=== PATIENT | male | born 1960 | race Caucasian/White ===

== ENCOUNTER 2018-09-14 09:24 | Inpatient (IN) ==
[2018-09-14] MEDS ORDERED: ASPIRIN PO ONE (09:29)
[2018-09-14] MEDS ORDERED: PROTONIX IV ONE (09:39)
[2018-09-14] MEDS ORDERED: G.I. COCKTAIL PO ONE (09:39)
[2018-09-14] MEDS ORDERED: SODIUM CHLORIDE 0.9% INJ ONE (09:39)
[2018-09-14 09:51] LABS: BASO# 0.05 X1000 (0.0-0.2); BASO% 0.7 % (0.0-0.8); EOS# 0.25 X1000 (0.0-0.7); EOS% 3.5 % (0.0-10.0); HEMATOCRIT 44.8 % (42.0-52.0); HEMOGLOBIN 15.5 g/dL (14.0-18.0); IMM GRAN# 0.02 X1000 (0.0-0.04); IMM GRAN% 0.3 % (0.0-0.5); LYMPH# 1.95 X1000 (1.2-3.4); LYMPH% 27.2 % (20.5-51.1); MCH 31.3 PG (27-31); MCHC 34.6 g/dL (33-37); MCV 90.5 FL (81-99); MONO# 0.67 X1000 (0.11-0.59); MONO% 9.3 % (1.7-9.3); MPV 9.3 FL (7.4-10.4); NEUT# 4.24 X1000 (1.4-6.5); PLT 253 X1000 (130-400); RBC 4.95 XMIL (4.7-6.1); RDW 12.9 % (11.5-14.5); WBC 7.18 X1000 (4.8-10.8)
--- NOTE | 2018-09-14 09:57 | Diag Imaging Result Doc PS360 ---
CHEST-2 VIEWS - 09/14/2018 INDICATION: chest pain copd COMPARISON: 03/14/2018 FINDINGS: Stable sternotomy wires. The lungs are clear. Heart size is normal. No pneumothorax or pleural effusion. IMPRESSION: Negative exam. Electronically signed by Anibal Velázquez 09/14/2018 9:54 AM
[2018-09-14 10:07] LABS: AGAP 9; BUN 7 mg/dL (8-22); CHLORIDE 99 mmol/L (98-107); COSMO 273; CREATININE 0.9 mg/dL (0.7-1.2); ESTIMATED GFR > 60; GLUCOSE 152 mg/dL (70-104); POTASSIUM 4.2 mmol/L (3.5-5.1); SODIUM 136 mmol/L (136-145); TCO2 28 mmol/L (25-35)
[2018-09-14 10:08] LABS: ALBUMIN 4.4 g/dL (3.5-5.0); ALKALINE PHOSPHATASE 51 U/L (32-122); CALCIUM 8.8 mg/dL (8.8-10.2); CK PROFILE 47 U/L (24-204); GOT 13 U/L (10-34); GPT 13 U/L (10-44); TOTAL PROTEIN 6.6 g/dL (6.3-8.3)
--- NOTE | 2018-09-14 10:09 | PROVIDER DOCUMENTATION ---
This chart was entered by Nataly Bah Scribe, acting as scribe for Stacey Santos CRNP. HPI-General Adult - General Chief Complaint: Chest Pain Stated Complaint: SOB / CHEST TIGHT Time Seen by Provider: 09/14/18 09:31 Source: patient Allergies/Adverse Reactions: Patient Allergies Allergy/AdvReac Type Severity Reaction Status Date / Time codeine Allergy NAUSEA/VOMI Verified 09/14/18 09:59 TING Penicillins Allergy ANAPHYLAXIS Verified 06/25/17 12:36 Home Medications: Home Medication List Medication Instructions Recorded Confirmed Last Taken Type ATORVAstatin [Lipitor] 40 mg PO QHS 06/25/17 06/25/17 1 Week Ago History ~06/18/17 Apixaban [Eliquis] 5 mg PO BID 06/25/17 06/25/17 1 Week Ago History ~06/18/17 Apixaban [Eliquis] 5 mg PO BID #60 tab 06/25/17 Unknown Rx Cholecalciferol (Vitamin D3) 5,000 unit PO QAM 06/25/17 06/25/17 1 Week Ago History [Dialyvite Vitamin D] ~06/18/17 Famotidine 20 mg PO DAILY #30 tab 06/25/17 Unknown Rx Famotidine 20 mg PO QAM 06/25/17 06/25/17 1 Week Ago History ~06/18/17 Flecainide Acetate 50 mg PO DAILY #30 tab 06/25/17 Unknown Rx Flecainide Acetate 50 mg PO QAM 06/25/17 06/25/17 1 Week Ago History ~06/18/17 Fluticasone/Salmet 250/50 INH 1 puff INH RTBID 06/25/17 06/25/17 1 Week Ago History [Advair 250/50 Diskus] ~06/18/17 Folic Acid 1 mg PO DAILY 06/25/17 06/25/17 1 Week Ago History ~06/18/17 Metoprolol [Lopressor] 25 mg PO BID #60 tab 06/25/17 Unknown Rx Metoprolol [Lopressor] 25 mg PO DAILY 06/25/17 06/25/17 1 Week Ago History ~06/18/17 Thiamine [Vitamin B-1] 100 mg PO DAILY 06/25/17 06/25/17 1 Week Ago History ~06/18/17 Prednisone 20 mg PO DAILY #5 tab 01/23/18 Unknown Rx - History of Present Illness -Gen Adult Nature of Presenting Problems: 58 y/o male presents to ED with pressure-like chest pain and nausea onset this morning. Pt reports palpitations, SOB, and fatigue onset 3 days ago. Pt states he has hx afib and is on eliquis. Pt is alert and oriented. Location of Pain/Injury: reports: chest Pain Radiation: reports: no radiation Quality of Pain: reports: pressure Severity: reports: mild Onset/Duration: reports: 3 days ago, this morning Timing: reports: still present Context/Activities at Onset: reports: none Modifying Factors: improves with: nothing Associated Symptoms: reports: chest pain, fatigue, nausea, shortness of breath, other (palpitations) Similar Symptoms Previously?: No Recently seen or treated by another doctor?: No Review of Systems - Adult - REVIEW OF SYSTEMS - ADULT Constitutional: reports: fatique. denies: chills, fever Eyes: reports: no symptoms reported Ears, Nose, Mouth & Throat: reports: no symptoms reported Cardiovascular: reports: chest pain, palpitations Respiratory: reports: shortness of breath. denies: cough Gastrointestinal: reports: nausea. denies: abdominal pain, diarrhea, vomiting Genitourinary: reports: no symptoms reported Musculoskeletal: denies: back pain, joint pain Integumentary: reports: no symptoms reported Neurological: denies: dizziness/vertigo, seizure Psychiatric: reports: no symptoms reported Endocrine: reports: no symptoms reported Hematologic/Lymphatic: reports: no symptoms reported Allergic/Immunologic: reports: no symptoms reported All Other Systems: Reviewed and Negative Past History - Adult - PAST MEDICAL HISTORY-ADULT Review of Records: reports: Old Records Reviewed, Nursing Assessment Review, Medications Reviewed Major Childhood Illnesses: reports: denies history Cardiovascular: reports: CAD, HTN, heart valve problem, hyperlipidemia Respiratory: reports: COPD Neurological: reports: TIA - PRIOR SURGERIES/PROCEDURES Surgical/Procedure History: reports: CABG - IMMUNIZATION STATUS Childhood Immunizations: See Nurse Assessment Flu Vaccine: See Nurse Assessment - FAMILY HISTORY Family History: reviewed, not pertinent - SOCIAL HISTORY Smoking: less than 1 pack/day Provider spent 3-5 mins advising pt. on dangers of tobacco.: Discussed manners to quit use, and f/u contacts for add'l counseling. Substance Use: none/never Alcohol Use Frequency: occasionally Living Situation: family Physical Exam-General - PHYSICAL EXAM-ADULT Initial Vital Signs Reviewed: Yes - CONSTITUTIONAL General Appearance: appears well, alert, no apparent distress - EYES Eyes: PERRL/EOMI, pink conjunctivae - HEAD, EARS, NOSE, MOUTH & THROAT HENMT: normocephalic/atraumatic, moist mucous membranes, normal ENT inspection - NECK Neck: non-tender, full range of motion - RESPIRATORY Respiratory: chest non-tender, normal breath sounds, wheezing (mild bilateral expiratory) - CARDIOVASCULAR Cardiovascular: normal peripheral pulses, regular rate, rhythm - GASTROINTESTINAL (ABDOMEN) Abdominal Exam: normal bowel sounds, non tender, soft - MUSCULOSKELETAL Back Exam: normal inspection, no CVA tenderness, no vertebral tenderness Extremity: normal range of motion, non-tender, normal gait - SKIN Integumentary: normal color, warm/dry - NEUROLOGIC Neurologic: grossly normal - PSYCHIATRIC Psych/Mental Status: normal mood/affect, normal thought content, normal thought process, oriented x 3 Progress - PLAN OF CARE/RESULTS Progress/Plan/Lab Results: Vital Signs - 8 hr 09/14/18 09:26 Pulse Rate 62 Respiratory Rate 18 Blood Pressure 146/78 O2 Sat by Pulse Oximetry 95 Orders Category Date Time Status Cardiac Monitoring DIRECTED Care 09/14/18 09:29 Active Oxygen Therapy- ED Nursing DIRECTED Care 09/14/18 09:29 Active Saline Loc NOW Care 09/14/18 09:29 Active CHEST-2 VIEWS [RAD] Stat Exams 09/14/18 09:29 Ordered CBC WITH ELECTRONIC DIFF [HEME] Stat Lab 09/14/18 09:39 Received CK PROFILE [SP CHEM] Stat Lab 09/14/18 09:39 Received COMPREHENSIVE METABOLIC PANEL [CHEM] Stat Lab 09/14/18 09:39 Received PRO B-NATRIURETIC PEPTIDE Stat Lab 09/14/18 09:39 Received PROTIME WITH INR [COAG] Stat Lab 09/14/18 09:39 Received PTT [COAG] Stat Lab 09/14/18 09:39 Received TROPONIN T Stat Lab 09/14/18 09:39 Received Aspirin Med 09/14/18 09:29 Discontinued 325 mg PO NOW ONE Lido/Mcintyre Alk/Al&mg Hydrox [G.i. Cocktail] Med 09/14/18 09:39 Discontinued 30 ml PO NOW ONE Pantoprazole [Protonix] Med 07/27/19 09:39 Discontinued 40 mg IV NOW ONE Sodium Chloride 0.9% Med 09/14/18 09:39 Discontinued 10 ml INJ NOW ONE CP/SOB/Palp >45 yrs of Age Stat Oth 09/14/18 09:29 Ordered EKG [EKG] Stat Ther 09/14/18 09:29 Ordered HEART SCORE OF 5. Laboratory Tests 09/14/18 09/14/18 09/14/18 09:39 09:39 09:39 WBC 7.18 RBC 4.95 Hgb 15.5 Hct 44.8 MCV 90.5 MCH 31.3 H MCHC 34.6 RDW Std Deviation 12.9 Plt Count 253 MPV 9.3 Immature Gran % (Auto) 0.3 Neut % (Auto) 59.0 Lymph % (Auto) 27.2 [place] % (Auto) 9.3 Eos % (Auto) 3.5 Baso % (Auto) 0.7 Immature Gran # (Auto) 0.02 Neut # (Auto) 4.24 Lymph # (Auto) 1.95 [place] # (Auto) 0.67 H Eos # (Auto) 0.25 Baso # (Auto) 0.05 PT INR PTT (Actin FS) Sodium 136 Potassium 4.2 Chloride 99 Carbon Dioxide 28 Anion Gap 9 BUN 7 L Creatinine 0.9 Estimated GFR/1.73 m2 > 60 BUN/Creatinine Ratio 8 Glucose 152 H Calculated Osmolality 273 Calcium 8.8 Total Bilirubin 0.30 AST 13 ALT 13 Alkaline Phosphatase 51 Creatine Kinase 47 Troponin T Ojr-L-Htdjtzqlzho Pept 95 Total Protein 6.6 Albumin 4.4 Globulin 2.0 Albumin/Globulin Ratio 2.0 09/14/18 09/14/18 09:39 09:39 WBC RBC Hgb Hct MCV MCH MCHC RDW Std Deviation Plt Count MPV Immature Gran % (Auto) Neut % (Auto) Lymph % (Auto) [place] % (Auto) Eos % (Auto) Baso % (Auto) Immature Gran # (Auto) Neut # (Auto) Lymph # (Auto) [place] # (Auto) Eos # (Auto) Baso # (Auto) PT 13.7 INR 1.00 PTT (Actin FS) 36.3 Sodium Potassium Chloride Carbon Dioxide Anion Gap BUN Creatinine Estimated GFR/1.73 m2 BUN/Creatinine Ratio Glucose Calculated Osmolality Calcium Total Bilirubin AST ALT Alkaline Phosphatase Creatine Kinase Troponin T < 0.010 Lru-V-Tybzyukubce Pept Total Protein Albumin Globulin Albumin/Globulin Ratio Discussed results and plan of care with patient. Patient agrees with plan and verbalizes understanding. Result Diagrams: 09/14/18 09:39 09/14/18 09:39 - EKG 1 Time of EKG reading by physician:: 09:34 EKG Read and Signed by:: Nahid Graves EKG Interpretation (*Must complete 3 of following elements*): Abnormal Rate: 63 Rhythm: NSR [place]: left QRS: other (septal infarct) SC Interval: normal ST Wave: normal 2 Time of EKG reading by physician:: 11:41 EKG Read and Signed by:: Nahid Graves EKG Interpretation (*Must complete 3 of following elements*): Abnormal Rate: 50 Rhythm: Sinus melissa [place]: left QRS: other (septal infarct) SC Interval: normal ST Wave: normal - XRAY 1 XRAY Study: Chest Impression: See EMR Report ([facility] - [address] [place] [id number] [facility] - [address] [place] [id number] Department of Imaging Patient: SELENE WHALENADM Date: 09/14/18MR#: [id number] : 1960ADM [facility] [id number] Age/Sex: 58/MRoom/Bed: Loc: P.ED Ordering Physician: Nahid Graves MD Family Physician: Olvin Carlos MD Reason for Procedure: chest pain copd Signed CHEST-2 VIEWS - 09/14/2018 INDICATION: chest pain copd COMPARISON: 03/14/2018 FINDINGS: Stable sternotomy wires. The lungs are clear. Heart size is normal. No pneumothorax or pleural effusion. IMPRESSION: Negative exam. Electronically signed by Anibal Velázquez 09/14/2018 9:54 AM 09/14/18953 Interpreting Physician: Anibal Velázquez MD Dictated Date/Time: 09/14/18953 cc: Nahid Graves MD; Olvin Carlos MD) - CONSULTS/PCP/HOSPITALIST Notification #1 *Consult/PCP/Hospitalist*: RUBEN Humphrey for Dr. Kumar Time Discussed: 11:55 Reason/Comments: Chest pain; HEART score 5 Consult Disposition: Will see in ED, Admit Departure - Departure Date of Disposition Decision: 09/14/18 Time of Disposition Decision: 11:55 DIAGNOSIS: Chest pain Qualifiers: Chest pain type: unspecified Qualified Code(s): R07.9 - Chest pain, unspecified Disposition: ADMITTED INPATIENT 09 Certified Medical Emergency: Emergent Condition: Stable Referrals and Follow-Ups: Olvin Carlos MD [Primary Care Provider] - Discharge Education: Steps to Quit Smoking, [id number] - Critical Care Note This patient required my direct & personal management of CC.: No Attestation - Physician/ NYDIA Attestation Patient care was provided by Advanced Practice Provider:: Yes Advanced Practice Provider:: Stacey Santos Advanced Practice Provider documentation review:: The Mid-level provider documentation, treatment plan and medical decision making was reviewed by the physician who agrees with all treatment and medical decision making by the P. The physician spent face to face time with patient:: No Advanced Practice Provider documentation review:: Supervising physician onsite and consulted in the evaluation and care of this patient. The physician did not have a face to face encounter with the patient. This chart was documented by the indicated scribe, (Nataly Bah Scribe) and accurately reflects the services I performed and decisions made by me, Stacey Santos CRNP, as attested by the provider's signature.
[2018-09-14 10:19] LABS: PROTIME 13.7 Seconds (11.0-16.0)
[2018-09-14 10:21] LABS: PTT 36.3 Seconds (22.3-41.8)
--- NOTE | 2018-09-14 11:29 | EKG Report ---
Test Performed on : 09/14/2018 09:32:04 AM Test Reason : cp afib hx sob Blood Pressure : / mmHG Vent. Rate : 063 BPM Atrial Rate : 063 BPM P-R Int : 206 ms QRS Dur : 088 ms QT Int : 394 ms P-R-T Axes : -05 -60 057 degrees QTc Int : 403 ms Normal sinus rhythm. Left axis deviation Septal infarct (cited on or before 25-JUN-2017) Abnormal ECG When compared with ECG of 14-MAR-2018 09:34, No significant change was found Unconfirmed Result
--- NOTE | 2018-09-14 12:23 | EKG Report ---
Test Performed on : 09/14/2018 11:41:31 AM Test Reason : CP Blood Pressure : / mmHG Vent. Rate : 050 BPM Atrial Rate : 050 BPM P-R Int : 200 ms QRS Dur : 086 ms QT Int : 420 ms P-R-T Axes : 006 -53 061 degrees QTc Int : 382 ms Sinus bradycardia. Left axis deviation Septal infarct (cited on or before 25-JUN-2017) Abnormal ECG When compared with ECG of 14-SEP-2018 09:32, (Unconfirmed) No significant change was found Unconfirmed Result
[2018-09-14] MEDS ORDERED: DUONEB (A & A) INH PRN (12:57)
[2018-09-14] MEDS: DUONEB (A & A) INH SCH ×3 (15:37→23:00)
[2018-09-14] MEDS: SOLU-MEDROL IV SCH ×2 (16:02→21:13)
--- NOTE | 2018-09-14 18:48 | HISTORY AND PHYSICAL ---
CHIEF COMPLAINT: Chest tightness. HISTORY OF PRESENT ILLNESS: This is a 58-year-old gentleman with a history of mitral valve replacement, coronary artery disease, COPD and hypertension, who presents to the emergency room complaining of chest pressure that started earlier in the morning along with nausea, fatigue and shortness of breath. He states that he has had some intermittent palpitations that have come and gone over the last 3 days. He denied any fevers or chills, or productive cough. Upon further questioning, he said this feels like his COPD exacerbations. He does have bilateral expiratory wheezing. PAST MEDICAL HISTORY: COPD, hyperlipidemia, hypertension, adrenal gland mass, coronary artery disease, mitral valve repair and a possible ASD repair. PAST SURGICAL HISTORY: Mitral valve repair. SOCIAL HISTORY: He smokes 2 packs a day. He smokes marijuana regularly and he drinks 3 beers a few times a week. ALLERGIES: Codeine, which causes nausea and vomiting; penicillin which causes anaphylaxis; onion, which causes a rash. HOME MEDICATIONS: DuoNeb, Eliquis, Lipitor, Pepcid, flecainide, Advair, [place], metoprolol. REVIEW OF SYSTEMS: Discussed with the patient, with pertinent positives stated in the HPI. He denied any syncope or dizziness, any chest pains, any PND, orthopnea, productive cough, fever, chills, any nausea, vomiting, diarrhea, constipation, black or bloody vomitus or stools, hematuria, dysuria, frequency or urgency. PHYSICAL EXAMINATION: GENERAL: This is a 58-year-old gentleman who is sitting up in the bed in no distress. VITAL SIGNS: Blood pressure is 112/68 with a heart rate of 60, respirations are 18, temperature is 97.8 degrees with room air saturation 98% to 100%. HEENT: Head is normocephalic, atraumatic. Mucous membranes are moist. NECK: Supple. Trachea midline. CARDIOVASCULAR: Regular rate and rhythm. S1 and S2 are appreciated. PULMONARY: He does have expiratory wheezes scattered throughout. Chest rises and falls symmetric with respiration. GASTROINTESTINAL: Abdomen is soft, nontender, nondistended. Bowel sounds in all 4 quadrants. NEUROLOGIC: He is alert and oriented x3. SKIN: Warm and dry. LABORATORY DATA: WBC is 7.1 with hemoglobin 15.5, hematocrit 44.8, platelets 253,000. Sodium is 136, potassium 4.2, BUN 7, creatinine 0.9 with a glucose of 152. Troponins are negative on multiple occasions. DIAGNOSTIC DATA: Chest x-ray reveals a negative exam. EKG reveals sinus bradycardia at a rate of 50. ASSESSMENT: 1. Chronic obstructive pulmonary disease, acute exacerbation. 2. Bradycardia. 3. Chest pressure. 4. Shortness of breath. 5. Hypertension. 6. History of coronary artery disease and mitral valve repair. PLAN: The patient has been admitted to the medical/surgical floor and placed on telemetry, which we will continue. We will continue to trend cardiac profile and troponin. Check a CMP and CBC in the morning. We will check a TSH. We will identify his home medications continue as is appropriate. He will be placed on healthy-heart diet. We will start incentive spirometer every 4 hours. We will repeat an EKG in the morning. For DVT prophylaxis we will continue his Eliquis. For GI prophylaxis we will review his medicines. If he is not on a PPI, we will start Prilosec. Further treatments pending hospital course. Dictated by RUBEN Mccann for Edwar Kumar MD cc: RUBEN Mccann MD
[2018-09-14] MEDS: LIPITOR PO SCH (21:13)
[2018-09-14] MEDS: ELIQUIS PO SCH (21:13)
[2018-09-15] MEDS: DUONEB (A & A) INH SCH ×6 (03:29→22:43)
[2018-09-15] MEDS: SOLU-MEDROL IV SCH ×3 (05:53→22:21)
--- NOTE | 2018-09-15 06:19 | EKG Report ---
Test Performed on : 09/15/2018 06:04:07 AM Test Reason : cp, AF Blood Pressure : / mmHG Vent. Rate : 070 BPM Atrial Rate : 070 BPM P-R Int : 212 ms QRS Dur : 086 ms QT Int : 412 ms P-R-T Axes : 076 -60 075 degrees QTc Int : 444 ms Sinus rhythm. with 1st degree AV block. Left axis deviation Septal infarct (cited on or before 25-JUN-2017) Abnormal ECG When compared with ECG of 14-SEP-2018 11:41, (Unconfirmed) Questionable change in initial forces of Septal leads QT has lengthened Confirmed by Nahid Graves MD ([id number]) on 09/18/2018 9:38:16 PM
[2018-09-15 06:54] LABS: HEMOGLOBIN 15.1 g/dL (14.0-18.0); IMM GRAN# 0.03 X1000 (0.0-0.04); IMM GRAN% 0.3 % (0.0-0.5); LYMPH# 0.63 X1000 (1.2-3.4); LYMPH% 5.8 % (20.5-51.1); MCH 30.6 PG (27-31); MCHC 34.3 g/dL (33-37); MCV 89.1 FL (81-99); MONO# 0.11 X1000 (0.11-0.59); MPV 10.1 FL (7.4-10.4); NEUT# 10.06 X1000 (1.4-6.5); NEUT% 92.9 % (42.2-75.2); PLT 267 X1000 (130-400); RBC 4.94 XMIL (4.7-6.1); RDW 12.6 % (11.5-14.5); WBC 10.83 X1000 (4.8-10.8)
[2018-09-15 07:11] LABS: LYMPHS 2 % (21-51); MONO 1 % (1-9); SEGS 97 % (42-75)
[2018-09-15 07:12] LABS: AGAP 14; ALBUMIN 3.9 g/dL (3.5-5.0); ALKALINE PHOSPHATASE 44 U/L (32-122); BUN 11 mg/dL (8-22); CALCIUM 8.8 mg/dL (8.8-10.2); CHLORIDE 100 mmol/L (98-107); COSMO 274; CREATININE 0.9 mg/dL (0.7-1.2); ESTIMATED GFR > 60; GLUCOSE 171 mg/dL (70-104); GOT 11 U/L (10-34); GPT 12 U/L (10-44); POTASSIUM 4.3 mmol/L (3.5-5.1); SODIUM 135 mmol/L (136-145); TCO2 21 mmol/L (25-35); TOTAL PROTEIN 6.8 g/dL (6.3-8.3)
[2018-09-15] MEDS: ELIQUIS PO SCH ×2 (09:55→22:21)
[2018-09-15] MEDS: PEPCID PO SCH (09:55)
[2018-09-15] MEDS: NORCO-7.5 PO PRN ×2 (10:06→19:22)
--- NOTE | 2018-09-15 14:58 | HISTORY AND PHYSICAL ---
ADDENDUM: Patient seen and examined by myself while in the ER. Full note dictated and discussed with nurse practitioner. States he is having shortness of breath, dyspnea on exertion. On exam he is wheezing. We will admit him to the hospital for COPD exacerbation and we will follow. Please see full note. cc: Edwar Kumar MD MTDD
--- NOTE | 2018-09-15 14:59 | PROGRESS NOTE ---
DATE: 09/15/2018 SUBJECTIVE: Patient notes he is starting to feel a little bit better. He is having less cough, less congestion. His breathing is improving. Denies any chest pains currently. PHYSICAL EXAMINATION: Vitals: Temp 97, pulse 78, respiratory 18, BP 97/55. General: Patient is awake, alert. He is pleasant. He is in minimal respiratory distress. HEENT: Normocephalic. Neck: Supple. Cardiovascular: Regular rate. Chest: Decreased but equal. Positive wheezing minimally. Abdomen: Soft nondistended. Extremities: Moves all extremities. ASSESSMENT: 1. Chronic obstructive pulmonary disease with exacerbation. 2. Chronic tobacco abuse. Again discussed with patient perils of smoking as well as reasons to stop. 3. Hypertension. 4. Hyperlipidemia. 5. Known coronary artery disease. PLAN: We will continue patient in the hospital. Continue treatment. We will wean his steroids. Hopefully home over the next 1 or 2 days. cc: Edwar Kumar MD
[2018-09-15] MEDS: LIPITOR PO SCH (22:21)
[2018-09-16] MEDS: DUONEB (A & A) INH SCH ×2 (02:41→07:36)
[2018-09-16] MEDS: SOLU-MEDROL IV SCH (05:55)
[2018-09-16 06:47] LABS: BASO# 0.01 X1000 (0.0-0.2); BASO% 0.1 % (0.0-0.8); HEMATOCRIT 39.3 % (42.0-52.0); HEMOGLOBIN 13.3 g/dL (14.0-18.0); IMM GRAN# 0.05 X1000 (0.0-0.04); IMM GRAN% 0.3 % (0.0-0.5); LYMPH# 0.59 X1000 (1.2-3.4); MCH 30.7 PG (27-31); MCHC 33.8 g/dL (33-37); MCV 90.8 FL (81-99); MONO# 0.79 X1000 (0.11-0.59); MONO% 4.1 % (1.7-9.3); NEUT% 92.5 % (42.2-75.2); PLT 254 X1000 (130-400); RBC 4.33 XMIL (4.7-6.1); RDW 12.9 % (11.5-14.5); WBC 19.44 X1000 (4.8-10.8)
[2018-09-16 07:50] LABS: ANISOCYTOSIS 1+; LYMPHS 3 % (21-51); MONO 3 % (1-9); SEGS 94 % (42-75)
--- NOTE | 2018-09-16 07:59 | Diag Imaging Result Doc PS360 ---
EXAM: CHEST-2 VIEWS HISTORY: hypoxia TECHNIQUE: Chest two views COMPARISON: 09/14/2018 FINDINGS: The lungs are hyperexpanded. The heart is not enlarged. Sternal wires are present. The vessels are not distended. There are no infiltrates. No pleural effusions. IMPRESSION: Stable chest. Electronically signed by Chidi Caicedo 09/16/2018 7:56 AM
[2018-09-16] MEDS: PEPCID PO SCH (09:13)
[2018-09-16] MEDS: ELIQUIS PO SCH (09:13)
[2018-09-16 09:23] VITALS: BP 124/54
--- NOTE | 2018-09-16 22:52 | DISCHARGE SUMMARY ---
ADMISSION DATE: 09/14/2018 DISCHARGE DATE: 09/16/2018 ADMISSION DIAGNOSIS: 1. Chronic obstructive pulmonary disease exacerbation. 2. Bradycardia. 3. Chest pressure. 4. Shortness of breath. 5. Hypertension. 6. History of coronary artery disease and mitral valve repair. DISCHARGE DIAGNOSIS: Chronic obstructive pulmonary disease exacerbation. CONSULTATIONS: None. SURGERIES AND PROCEDURES: None. HOSPITAL COURSE: Mr. Hilario Ambrose 58-year-old male with history of mitral valve replacement, CAD, COPD, hypertension presented to [facility] complaining of chest pressure along with nausea, fatigue, shortness of breath. He had been having some intermittent palpitations over the last 3 days prior to admit. The patient stated that he actually felt like it was COPD exacerbation and he had auscultated bilateral expiratory wheezing. He had been started on q.4 hour scheduled albuterol Atrovent nebulizers, some IV steroids but no antibiotic coverage. He was discharged home with his home medications and Advair along with nebulized albuterol Atrovent. DISCHARGE VITAL SIGNS: Temperature 97.3 degrees, heart rate 94, respiratory rate 18, blood pressure 124/54, O2 saturation 100% on room air. DISCHARGE LAB DATA: White blood cells 19,000 and this was on steroids, hemoglobin 13, hematocrit 39, platelet count 254,000. BNP yesterday sodium 135, potassium 4.3, BUN 11, creatinine 0.9, glucose 171, calcium 8.8, bilirubin 0.30, AST 11, ALT 12, CK 42, troponin less than 0.01, albumin 3.9, TSH 0.62. IMAGING: Chest x-ray on the negative exam. Chest x-ray on the stable chest. EKGs normal sinus rhythm, rate 63, QTc 403 is on the a repeat same day sinus bradycardia rate 50, QTc is 382 and had another EKG on the normal sinus rhythm, first-degree AV block, rate was 70, QTc was 444. DISCHARGE MEDICATIONS: 1. Lipitor 40 mg p.o. nightly. 2. Advair 250/50 1 puff inhaled twice daily. 3. Albuterol Atrovent nebulizers 3 times a day. 4. Eliquis 5 mg p.o. twice daily. 5. Flecainide acetate 100 mg p.o. twice daily. 6. [place] 1 tab p.o. twice a day p.r.n. 7. Famotidine 40 mg p.o. daily. 8. Lopressor 25 mg p.o. twice daily. 9. Medrol Dosepak. DISCHARGE DIET: Heart healthy. DISCHARGE ACTIVITY: As tolerated. DISCHARGE INSTRUCTIONS: If your condition changes contact physician and or return to emergency department. Changes may include but are not limited to shortness of breath, increased fatigue, excessive bleeding, unexplained weight loss or gain, unmanageable pain signs or symptoms of infection. DISCHARGE PHYSICIAN FOLLOWUPS: Dr. Carlos . DISCHARGE DISPOSITION: Home. Dictated by RUBEN Perera for Edwar Kumar MD cc: RUBEN Perera MD [facility]
--- NOTE | 2018-09-17 21:35 | DISCHARGE SUMMARY ---
ADMISSION DATE: 09/14/2018 DISCHARGE DATE: 09/16/2018 DISCHARGE ADDENDUM: Patient was seen and examined by myself. Full note dictated and discussed with nurse practitioner. Patient presented to the hospital with what appeared to be a COPD exacerbation, was placed on breathing treatments, oxygen, steroids, had good improvement. On discharge, he is awake, alert. He is in no distress. Overall, he states that he is feeling much better. DISPOSITION: The patient will be discharged home. He will continue breathing treatments, steroids, etc. He will follow up outpatient with treatment facility of choice. cc: Edwar Kumar MD
== END 2018-09-16 09:50 | disposition home or self-care (01) | DRG 192 ==
LOC: P.ED 09:24 → P.MEDSURG 13:15
PROVIDERS: ATTEND Family Medicine
CPT/HCPCS: 36415; 71020; 71046; 80053; 82550; 83880; 84443; 84484; 85025; 85610; 85730; 93005; 93010; 94640; 94761; 94799; 96374; 99285; A9270; C9113; J2920; J2930; S0164

== ENCOUNTER 2019-01-13 08:18 | Inpatient (IN) ==
[2019-01-14 07:37] VITALS: BP 103/58
== END 2019-01-14 12:24 | disposition home or self-care (01) | DRG 192 ==
LOC: P.ED 08:18 → P.MEDSURG 11:35 → SUATTDRO 11:35
PROVIDERS: ATTEND Family Medicine

== ENCOUNTER 2019-02-13 14:02 | Inpatient (IN) ==
[2019-02-13] MEDS ORDERED: LASIX IV ONE (16:13)
--- NOTE | 2019-02-13 16:18 | PROVIDER DOCUMENTATION ---
HPI-Cardiac General - General Chief Complaint: General Adult Stated Complaint: REVISIT / RETURN Time Seen by Provider: 02/13/19 15:48 Source: patient Allergies/Adverse Reactions: Patient Allergies Allergy/AdvReac Type Severity Reaction Status Date / Time codeine Allergy NAUSEA/VOMI Verified 02/12/19 10:19 TING Penicillins Allergy ANAPHYLAXIS Verified 02/12/19 10:19 onion AdvReac RASH Verified 02/12/19 10:19 Home Medications: Home Medication List Medication Instructions Recorded Confirmed Last Taken Type Apixaban [Eliquis] 5 mg PO BID 06/25/17 02/13/19 09/14/18 07:00 History Famotidine 20 mg PO DAILY #30 tab 06/25/17 02/13/19 09/14/18 07:00 Rx Fluticasone/Salmet 250/50 INH 1 puff INH RTBID 06/25/17 02/13/19 09/14/18 07:00 History [Advair 250/50 Diskus] Albuterol 2.5MG/Ipratrop 0.5MG 3 ml INH RTTID 09/14/18 02/13/19 Unknown History [Duoneb (A & A)] Albuterol Sulfate [Proair Hfa] 1 puff INH Q6H PRN PRN 01/13/19 02/13/19 Unknown History Hydrocodone/APAP 10 mg/325 mg 1 tab PO TID PRN 01/13/19 02/13/19 Unknown History [Kinsman-10] Metoprolol Tartrate 50 mg PO DAILY 01/13/19 02/13/19 Unknown History Furosemide [Lasix] 20 mg PO DAILY 7 Days #7 tab 02/12/19 02/13/19 Unknown Rx - History of Present Illness-Cardiac Nature of Presenting Problem: 58 yom with pmh of copd, open heart surgery presents with 3 days of SOB, orthopnea, pedal edema. He was seen here in ed yesterday given lasix but presents today with c/o worsening symptoms. he denies cp, n/v/d, fever. Quality of Pain: reports: none Severity in ED: moderate Onset/Duration: 3 days ago Timing: still present Modifying Factors: improves with: nothing Palpitation Quality: N/A History of arrythmia: reports: A-Fib Recent use of:: reports: no stimulants Nitro Today/Relief: reports: no nitro taken today Aspirin Treatment Today: reports: no aspirin today Prior Chest Pain/Cardiac Workup: reports: cardiolite scan, echocardiography (reviewed) Associated Symptoms: reports: shortness of breath Similar Symptoms Previously?: Yes Recently Seen Here or By Another Healthcare Provider: Yes (here in ed 02/12) Review of Systems - Adult - REVIEW OF SYSTEMS - ADULT Constitutional: reports: no symptoms reported. denies: see HPI, chills, fever, fatique, night sweats, weight gain, weight loss, other Eyes: reports: no symptoms reported. denies: see HPI, discharge, dry eyes, decreased vision, blurred vision, double vision, eye pain, redness, other Ears, Nose, Mouth & Throat: reports: no symptoms reported. denies: see HPI, ear discharge, ear pain, hearing loss, tinnitus, epistaxis, sinus problem, nose pain, loose teeth, mouth/dental pain, mouth swelling, hoarseness, throat pain, throat swelling, other Cardiovascular: reports: see HPI, orthopnea Respiratory: reports: no symptoms reported. denies: see HPI, chronic cough, cough, dyspnea on exertion, excessive sputum production, hemoptysis, pleurisy, shortness of breath, wheezing, other Gastrointestinal: reports: no symptoms reported. denies: see HPI, abdominal pain, hematemesis, constipation, diarrhea, difficulty swallowing, frequent heartburn, nausea, poor appetite, rectal bleeding, vomiting, other Genitourinary: reports: no symptoms reported. denies: see HPI, dysuria, discharge, frequency, flank pain, frequent UTI's, hematuria, hesitency, incontinence, urinary retention, urgency, other Musculoskeletal: reports: no symptoms reported. denies: see HPI, bone pain, back pain, frequent leg cramps, joint pain, joint swelling, muscle aches, muscle weakness, neck pain, other Integumentary: reports: no symptoms reported. denies: see HPI, hives, hair loss, itching, mole changes, nail changes, rash, skin sores/ulcer, skin thickening, other Neurological: reports: no symptoms reported. denies: see HPI, ataxia, dizziness/vertigo, headache/migraines, loss of balance, numbness, paresthesia, seizure, slurred speech, syncope, tremors, other Psychiatric: reports: no symptoms reported. denies: see HPI, anxiety, anti- depressant use, alcohol/drug dependence, depression, emotional problems, insomnia, panic attacks, suicidal thoughts, other Endocrine: reports: no symptoms reported. denies: see HPI, change in skin pigment, excessive sweating, goiter, cold intolerance, heat intolerance, increased hunger, increased thirst, polyuria, other Hematologic/Lymphatic: reports: no symptoms reported. denies: see HPI, blood clots, easy bruising, low blood count, lymphedema, prolonged bleeding, swollen lymph nodes, transfusions, other Allergic/Immunologic: reports: no symptoms reported. denies: see HPI, allergic reactions, allergic rhinitis, asthma, eczema, food allergy, frequent infections, hay fever, hives, positive PPD, urticaria, other Past History - Adult - PAST MEDICAL HISTORY-ADULT Review of Records: reports: Nursing Assessment Review, Social history reviewed & non-contributory. Major Childhood Illnesses: reports: denies history Cardiovascular: reports: CAD, HTN, heart valve problem, hyperlipidemia Respiratory: reports: COPD Gastrointestinal: reports: denies history Obstetrical/Gynecological: reports: denies history Genitourinary: reports: denies history Musculoskeletal: reports: denies history Neurological: reports: TIA Endocrine/Immune: reports: denies history Other Conditions: reports: denies history - PRIOR SURGERIES/PROCEDURES Surgical/Procedure History: reports: CABG - IMMUNIZATION STATUS Childhood Immunizations: See Nurse Assessment Flu Vaccine: See Nurse Assessment - FAMILY HISTORY Family History: reviewed, not pertinent Physical Exam-General - PHYSICAL EXAM-ADULT Initial Vital Signs Reviewed: Yes - CONSTITUTIONAL General Appearance: alert, no apparent distress. negative: appears well (chornically ill appearing) - EYES Eyes: PERRL/EOMI, pink conjunctivae - HEAD, EARS, NOSE, MOUTH & THROAT HENMT: normocephalic/atraumatic, moist mucous membranes, normal ENT inspection - NECK Neck: non-tender, full range of motion, supple - RESPIRATORY Respiratory: chest non-tender, no pleuratic chest pain, no respiratory distress, no accessory muscle use, crackles (basilar) - CARDIOVASCULAR Cardiovascular: normal peripheral pulses, regular rate, rhythm, no edema (pt reports toes feel tight bu there is no pedal edema noted), no gallop, no JVD, no murmur - GASTROINTESTINAL (ABDOMEN) Abdominal Exam: normal bowel sounds, non tender, soft, no organomegaly, no pulsatile mass - LYMPHATIC Lymphatic: no adenopathy - MUSCULOSKELETAL Back Exam: normal inspection, no CVA tenderness, no vertebral tenderness Extremity: normal range of motion, non-tender, normal gait (walked to room without difficulty) Peripheral Pulses: radial (R): 2+, radial (L): 2+, dorsalis-pedis (R): 2+, dorsalis-pedis (L): 2+ - SKIN Integumentary: normal color, normal turgor, warm/dry - NEUROLOGIC Neurologic: grossly normal - PSYCHIATRIC Psych/Mental Status: normal mood/affect, oriented x 3 Progress - PLAN OF CARE/RESULTS Progress/Plan/Lab Results: Vital Signs - 8 hr 02/13/19 14:24 Temperature 99.2 F Pulse Rate 91 H Respiratory Rate 22 Blood Pressure 118/69 O2 Sat by Pulse Oximetry 97 Laboratory Results - last 24 hr 02/13/19 02/13/19 02/13/19 16:37 16:37 16:37 WBC 5.26 RBC 5.10 Hgb 15.2 Hct 45.8 MCV 89.8 MCH 29.8 MCHC 33.2 RDW Std Deviation 13.3 Plt Count 343 D MPV 8.6 Immature Gran % (Auto) 0.2 Neut % (Auto) 68.8 Lymph % (Auto) 20.7 Day % (Auto) 7.4 Eos % (Auto) 2.3 Baso % (Auto) 0.6 Immature Gran # (Auto) 0.01 Neut # (Auto) 3.62 Lymph # (Auto) 1.09 L Day # (Auto) 0.39 Eos # (Auto) 0.12 Baso # (Auto) 0.03 PT INR PTT (Actin FS) Sodium 136 Potassium 4.3 Chloride 97 L Carbon Dioxide 26 Anion Gap 13 BUN 5 L Creatinine 0.8 Estimated GFR/1.73 m2 > 60 BUN/Creatinine Ratio 6 Glucose 104 Calculated Osmolality 270 Calcium 9.3 Total Bilirubin 0.40 AST 25 ALT 26 Alkaline Phosphatase 64 Troponin T < 0.010 Zlg-F-Yhagwsxkisx Pept Total Protein 7.5 Albumin 4.8 Globulin 3.0 Albumin/Globulin Ratio 2.0 02/13/19 02/13/19 16:37 16:37 WBC RBC Hgb Hct MCV MCH MCHC RDW Std Deviation Plt Count MPV Immature Gran % (Auto) Neut % (Auto) Lymph % (Auto) Day % (Auto) Eos % (Auto) Baso % (Auto) Immature Gran # (Auto) Neut # (Auto) Lymph # (Auto) Day # (Auto) Eos # (Auto) Baso # (Auto) PT 12.4 INR 0.88 PTT (Actin FS) 35.1 Sodium Potassium Chloride Carbon Dioxide Anion Gap BUN Creatinine Estimated GFR/1.73 m2 BUN/Creatinine Ratio Glucose Calculated Osmolality Calcium Total Bilirubin AST ALT Alkaline Phosphatase Troponin T Yyp-P-Hvsyguzldhi Pept 2126 H Total Protein Albumin Globulin Albumin/Globulin Ratio Orders Category Date Time Status Admit - [facility] Routine AdmDCTranf 02/13/19 17:36 Active Activity - Up with Assistance ORDERED Care 02/13/19 17:36 Active DVT/PE Risk Assess/Protocol [QM] ORDERED Care 02/13/19 17:36 Active Intake and Output-Strict ORDERED Care 02/13/19 17:36 Active Saline Loc NOW Care 02/13/19 16:13 Active Vital Signs Order Q 8-HR ASSESS Care 02/13/19 17:36 Active Z-Document. for Tele Applied ORDERED Care 02/13/19 17:37 Active Heart Healthy Diet Diet 02/13/19 17:36 Active CHEST-2 VIEWS [RAD] Routine Exams 02/13/19 17:35 Completed CBC WITH ELECTRONIC DIFF [HEME] Stat Lab 02/13/19 16:37 Completed CBC WITH NO DIFF [HEME] Routine Lab 02/14/19 06:00 Ordered CK PROFILE [SP CHEM] Routine Lab 02/14/19 06:00 Ordered COMPREHENSIVE METABOLIC PANEL [CHEM] Routine Lab 02/14/19 06:00 Uncollected COMPREHENSIVE METABOLIC PANEL [CHEM] Stat Lab 02/13/19 16:37 Completed MAGNESIUM [CHEM] Routine Lab 02/14/19 06:00 Uncollected PRO B-NATRIURETIC PEPTIDE Stat Lab 02/13/19 16:37 Completed PROTIME WITH INR [COAG] Stat Lab 02/13/19 16:37 Completed PTT [COAG] Stat Lab 02/13/19 16:37 Completed TROPONIN T Routine Lab 02/14/19 06:00 Ordered TROPONIN T Stat Lab 02/13/19 16:37 Completed TSH Routine Lab 02/14/19 06:00 Uncollected Acetaminophen [Tylenol] Med 02/13/19 17:39 Active 650 mg PO Q6H PRN PRN Albuterol 2.5MG/Ipratrop 0.5MG [Duoneb (A & A)] Med 02/13/19 17:37 Active 3 ml INH TID PRN PRN Apixaban [Eliquis] Med 02/13/19 21:00 Active 5 mg PO BID Famotidine [Pepcid] Med 02/14/19 09:00 Active 20 mg PO DAILY Fluticasone/Salmet 250/50 INH [Advair 250/50 Diskus] Med 02/13/19 19:30 Active 1 puff INH RTBID Furosemide [Lasix] Med 02/13/19 16:13 Discontinued 40 mg IV NOW ONE Furosemide [Lasix] Med 02/13/19 17:45 Active 40 mg IV Q12H Hydrocodone/APAP 10 mg/325 mg [[place]insman-10] Med 02/13/19 17:37 Active 1 each PO Q8H PRN PRN Metoprolol [Lopressor] Med 02/14/19 09:00 Active 50 mg PO DAILY Ondansetron [Zofran] Med 02/13/19 17:39 Active 4 mg IV Q4-6H PRN PRN Aerosol Treatments Routine Oth 02/13/19 17:38 Active Aerosol Treatments Stat Oth 02/13/19 17:38 Active Telemetry [OM.EQ] Routine Oth 02/13/19 17:36 Active EKG [EKG] Stat Ther 02/13/19 16:13 Draft Transfer/Admit Order [TRANSFER] Routine Transfer 02/13/19 17:39 Ordered Result Diagrams: 02/13/19 16:37 02/13/19 16:37 - CONSULTS/PCP/HOSPITALIST Notification #1 *Consult/PCP/Hospitalist*: DR BEARDEN Time Discussed: 17:34 Consult Disposition: Admit Departure - Departure Date of Disposition Decision: 02/13/19 Time of Disposition Decision: 17:30 DIAGNOSIS: COPD exacerbation, Elevated brain natriuretic peptide (BNP) level, Orthopnea, Edema Disposition: ADMITTED INPATIENT 09 Certified Medical Emergency: Emergent Condition: Stable Referrals and Follow-Ups: Olvin Carlos MD [Primary Care Provider] - - Critical Care Note This patient required my direct & personal management of CC.: No Attestation - Physician/ NYDIA Attestation Patient care was provided by Advanced Practice Provider:: Yes Advanced Practice Provider:: Shwetha Wright Advanced Practice Provider documentation review:: The Mid-level provider documentation, treatment plan and medical decision making was reviewed by the physician who agrees with all treatment and medical decision making by the MLP. The physician spent face to face time with patient:: No Advanced Practice Provider documentation review:: Supervising physician onsite and consulted in the evaluation and care of this patient. The physician did not have a face to face encounter with the patient.
[2019-02-13 16:55] LABS: BASO# 0.03 X1000 (0.0-0.2); BASO% 0.6 % (0.0-0.8); EOS# 0.12 X1000 (0.0-0.7); EOS% 2.3 % (0.0-10.0); HEMATOCRIT 45.8 % (42.0-52.0); HEMOGLOBIN 15.2 g/dL (14.0-18.0); IMM GRAN# 0.01 X1000 (0.0-0.04); IMM GRAN% 0.2 % (0.0-0.5); LYMPH# 1.09 X1000 (1.2-3.4); LYMPH% 20.7 % (20.5-51.1); MCH 29.8 PG (27-31); MCHC 33.2 g/dL (33-37); MCV 89.8 FL (81-99); MONO# 0.39 X1000 (0.11-0.59); MONO% 7.4 % (1.7-9.3); MPV 8.6 FL (7.4-10.4); NEUT# 3.62 X1000 (1.4-6.5); NEUT% 68.8 % (42.2-75.2); PLT 343 X1000 (130-400); RDW 13.3 % (11.5-14.5); WBC 5.26 X1000 (4.8-10.8)
[2019-02-13 17:02] LABS: INR 0.88; PROTIME 12.4 Seconds (11.0-16.0)
[2019-02-13 17:03] LABS: PTT 35.1 Seconds (22.3-41.8)
[2019-02-13 17:10] LABS: AGAP 13; ALBUMIN 4.8 g/dL (3.5-5.0); ALKALINE PHOSPHATASE 64 U/L (32-122); BUN 5 mg/dL (8-22); CALCIUM 9.3 mg/dL (8.8-10.2); CHLORIDE 97 mmol/L (98-107); COSMO 270; CREATININE 0.8 mg/dL (0.7-1.2); ESTIMATED GFR > 60; GLUCOSE 104 mg/dL (70-104); GOT 25 U/L (10-34); GPT 26 U/L (10-44); POTASSIUM 4.3 mmol/L (3.5-5.1); SODIUM 136 mmol/L (136-145); TCO2 26 mmol/L (25-35); TOTAL PROTEIN 7.5 g/dL (6.3-8.3)
[2019-02-13] MEDS ORDERED: ZOFRAN IV PRN (17:39)
[2019-02-13] MEDS ORDERED: TYLENOL PO PRN (17:39)
[2019-02-13] MEDS ORDERED: LASIX IV SCH (17:45)
--- NOTE | 2019-02-13 17:55 | EKG Report ---
Test Performed on : 02/13/2019 5:41:17 PM Test Reason : SOB, edema Blood Pressure : / mmHG Vent. Rate : 088 BPM Atrial Rate : 088 BPM P-R Int : 190 ms QRS Dur : 088 ms QT Int : 332 ms P-R-T Axes : 030 244 055 degrees QTc Int : 401 ms Normal sinus rhythm. Right superior axis deviation Right ventricular hypertrophy Anteroseptal infarct (cited on or before 25-JUN-2017) Abnormal ECG When compared with ECG of 12-FEB-2019 10:28, (Unconfirmed) Questionable change in initial forces of Anterior leads Confirmed by Nahid Graves MD ([id number]), web editor Lyn Del Cid ([id number]) on 03/24/2019 12:37:57 PM
--- NOTE | 2019-02-13 18:10 | Diag Imaging Result Doc PS360 ---
EXAM: CHEST-2 VIEWS HISTORY: hypoxia TECHNIQUE: Two views COMPARISON: 02/12/2019 FINDINGS: The lungs are hyperexpanded. The heart is not enlarged. There are sternal wires. The vessels are small. There are no infiltrates. No pleural effusions. IMPRESSION: Emphysema Electronically signed by Chidi Caicedo 02/13/2019 6:08 PM
--- NOTE | 2019-02-13 18:46 | HISTORY AND PHYSICAL ---
CHIEF COMPLAINT: Shortness of breath. HISTORY OF PRESENT ILLNESS: The patient is a 58-year-old male who has a known history of COPD, coronary disease. He presented to the ER yesterday with shortness of breath and again today. Notes that shortness of breath is worse when he lies flatly in the bed. He has had cough, congestion, increased swelling in his lower extremities. When he sits up, shortness of breath improved. Denies any current fevers, chills. Denies nausea, vomiting. ALLERGIES: Codeine causing vomiting, penicillin anaphylaxis, onions causing a rash. MEDICATIONS: Eliquis 5 b.i.d., Pepcid, Advair, DuoNeb, hydrocodone, Lasix 20. REVIEW OF SYSTEMS: As noted above, increased cough, congestion, increased shortness of breath, increased orthopnea. Had increased swelling of the lower extremities. Denies any fevers, chills. Denies any chest pain, palpitations. Denies dysuria, frequency, urgency, constipation, melena, hematochezia. Denies dysuria, frequency, urgency. PAST MEDICAL HISTORY: Significant for known coronary artery disease, hypertension, hyperlipidemia, COPD. He has had a history of TIA. He had a CABG in the past. He did have an echocardiogram and GXT earlier this year that both were reported as normal. FAMILY HISTORY: Noncontributory. SOCIAL HISTORY: Patient lives at home. Denies illicit substance use. PHYSICAL EXAMINATION: VITAL SIGNS: Reviewed. Temperature 99 degrees, pulse 91, respiratory 22, BP 118/69. Saturating 97% on room air. GENERAL: Patient is very pleasant. He is in no current respiratory distress. He is sitting in the bed with the head elevated at 30 degrees. HEENT: Normocephalic. NECK: Supple. CARDIOVASCULAR: Regular rate. No murmurs. CHEST: Clear decreased but equal. No current crackles, after he has been given Lasix in the ER, no accessory muscle usage. ABDOMEN: Soft, nondistended, nontender. EXTREMITIES: Moves all extremities. Has 1+ edema bilateral lower extremities. Good pulses. NEUROLOGIC: No changes. He is awake, alert, oriented x3. LABORATORY DATA: CBC, CMP, essentially negative. His BNP at 2126. ASSESSMENT: 1. Chronic obstructive pulmonary disease with exacerbation. 2. Orthopnea. 3. Congestive heart failure with exacerbation. 4. Known coronary artery disease status coronary artery bypass grafting. PLAN: We will continue patient in the hospital. We are going to admit him and place him on IV Lasix. Continue his home medications. Further orders as needed. cc: Edwar Kumar MD
[2019-02-13] MEDS: ELIQUIS PO SCH (21:17)
[2019-02-13] MEDS: NORCO-10 PO PRN (21:55)
[2019-02-13] MEDS: ADVAIR 250/50 DISKUS INH SCH (22:36)
[2019-02-13] MEDS: DUONEB (A & A) INH PRN (22:36)
[2019-02-14] MEDS: LASIX IV SCH ×2 (05:07→16:35)
[2019-02-14 06:37] LABS: HEMATOCRIT 43.3 % (42.0-52.0); HEMOGLOBIN 14.2 g/dL (14.0-18.0); MCH 29.2 PG (27-31); MCHC 32.8 g/dL (33-37); MCV 89.1 FL (81-99); MPV 8.9 FL (7.4-10.4); RBC 4.86 XMIL (4.7-6.1); RDW 13.3 % (11.5-14.5); WBC 4.33 X1000 (4.8-10.8)
[2019-02-14 07:08] LABS: AGAP 13; ALBUMIN 4.1 g/dL (3.5-5.0); ALKALINE PHOSPHATASE 56 U/L (32-122); BUN 9 mg/dL (8-22); CALCIUM 8.9 mg/dL (8.8-10.2); CHLORIDE 98 mmol/L (98-107); CK PROFILE 33 U/L (24-204); COSMO 272; CREATININE 0.8 mg/dL (0.7-1.2); ESTIMATED GFR > 60; GLUCOSE 124 mg/dL (70-104); GOT 20 U/L (10-34); GPT 22 U/L (10-44); MAGNESIUM 2.1 mg/dL (1.5-2.7); POTASSIUM 4.1 mmol/L (3.5-5.1); SODIUM 136 mmol/L (136-145); TCO2 25 mmol/L (25-35); TOTAL PROTEIN 6.5 g/dL (6.3-8.3)
[2019-02-14] MEDS: ELIQUIS PO SCH ×3 (07:51→20:35)
[2019-02-14] MEDS: NORCO-10 PO PRN ×2 (07:51→16:42)
[2019-02-14] MEDS: LOPRESSOR PO SCH ×2 (07:52→09:12)
[2019-02-14] MEDS: PEPCID PO SCH ×2 (07:52→09:12)
[2019-02-14] MEDS: DUONEB (A & A) INH PRN ×3 (08:12→19:28)
[2019-02-14] MEDS: ADVAIR 250/50 DISKUS INH SCH ×2 (08:16→19:27)
[2019-02-14] MEDS: SOLU-MEDROL IV SCH ×2 (10:45→16:35)
--- NOTE | 2019-02-14 11:36 | PROGRESS NOTE ---
DATE: 02/14/2019 SUBJECTIVE: Patient notes that overall he is feeling better, having less shortness of breath, but still gets tired going back and forth to the restroom. Denies any fevers, chills, chest pain. OBJECTIVE: Vital Signs: On physical examination, temperature 98, pulse 88, respiratory rate 18, BP 111/67. General: Patient is awake, alert, very pleasant. He is in mild respiratory distress. HEENT: Normocephalic. Neck: Supple. Cardiovascular: Regular rate. Chest: Decreased, but equal minimal wheezing. Abdomen: Soft, nondistended. Extremities: Moves all extremities. Neurologic: No changes. ASSESSMENT: 1. Chronic obstructive pulmonary disease with exacerbation. 2. Systolic congestive heart failure with mild exacerbation. 3. Known coronary artery disease status post bypass grafting. 4. Orthopnea. PLAN: We are going to continue patient in the hospital, continue breathing treatments, oxygen. Will add steroids, continue Lasix and will follow. cc: Edwar Kumar MD
[2019-02-15] MEDS: SOLU-MEDROL IV SCH (01:06)
[2019-02-15] MEDS: NORCO-10 PO PRN (04:16)
[2019-02-15] MEDS: LASIX IV SCH (04:16)
[2019-02-15 08:02] VITALS: BP 102/58
[2019-02-15] MEDS: ADVAIR 250/50 DISKUS INH SCH (08:07)
[2019-02-15] MEDS ORDERED: SOLU-MEDROL IV SCH (09:00)
[2019-02-15] MEDS ORDERED: LASIX PO SCH (09:00)
[2019-02-15] MEDS: LOPRESSOR PO SCH (10:01)
[2019-02-15] MEDS: ELIQUIS PO SCH (10:01)
[2019-02-15] MEDS: PEPCID PO SCH (10:01)
--- NOTE | 2019-02-15 14:29 | DISCHARGE SUMMARY ---
ADMISSION DATE: 02/13/2019 DISCHARGE DATE: 02/15/2019 CONSULTATIONS: None. PERTINENT PROCEDURES: Chest x-ray, emphysema. DISCHARGE DIAGNOSIS: 1. Chronic obstructive pulmonary disease exacerbation, resolved. 2. Systolic congestive heart failure, mild, resolved. 3. Known coronary artery disease, status post bypass grafting. 4. Orthopnea, resolved. HOSPITAL COURSE: Briefly, Mr. Ambrose is a 58-year-old male with a known history of COPD, coronary artery disease, who presented to the ED with shortness of breath and notes that his shortness of breath is worse when he lies flat in the bed. He also reported a cough, congestion, increased swelling in his lower extremities and when he sits up his shortness of breath improves. Workup in the ED showed a proBNP of 2126. Found to be in a COPD as well as congestive heart failure exacerbation. He was started on supplemental O2, bronchodilators, aggressive pulmonary toilet, IV Lasix and steroids. Mr. Ambrose has greatly improved over his hospital course, he is saturating well on room air, he is hemodynamically stable and will be discharged back home today with p.o. Lasix and a Medrol Dosepak. VITAL SIGNS AT TIME OF DISCHARGE: Temperature is 97.9 degrees, heart rate 86, respirations 18, blood pressure 116/59, O2 is 93% on room air. DISCHARGE DIET: Healthy heart. DISCHARGE MEDICATIONS: 1. Advair inhaler 1 puff inhaled b.i.d. 2. DuoNeb 3 mL inhaled t.i.d. 3. Eliquis 5 mg p.o. b.i.d. 4. Metoprolol 50 mg p.o. daily. 5. [place] 10, one tab p.o. t.i.d. p.r.n. pain. 6. ProAir inhaler 1 puff inhaled every 6 hours. 7. Pepcid 20 mg p.o. daily. 8. Lasix 20 mg p.o. daily. 9. Medrol Dosepak 4 mg p.o. as directed. FOLLOWUP: Mr. Ambrose is being discharged back home with self care. He is to take all medications as prescribed. He is to follow up with his primary care doctor, Olvin Carlos in the next 1 to 2 weeks. He can return to the ED or call 911 for any worsening of symptoms. Dictated by RUBEN Garcia for Edwar Kumar MD cc: MD Olvin Peñaloza MD
--- NOTE | 2019-02-15 18:51 | DISCHARGE SUMMARY ---
ADMISSION DATE: 02/13/2019 DISCHARGE DATE: 02/15/2019 On discharge, patient is awake, alert. He states he is feeling much better. His breathing is improving. Discharge him home. Continue Lasix. Follow up with his primary care. cc: Edwar Kumar MD
== END 2019-02-15 11:02 | disposition home or self-care (01) | DRG 190 ==
LOC: P.ED 14:02 → P.MEDSURG 20:08
PROVIDERS: ATTEND Family Medicine